=== PATIENT | female | born 1980 | race Caucasian/White ===

== ENCOUNTER 2021-11-20 10:57 | Emergency (ER) | payer BC ==
[2021-11-20] MEDS ORDERED: DECADRON 10MG INJ. IV ONE (11:22)
[2021-11-20] MEDS ORDERED: DECADRON 10MG INJ. ONE (11:37)
[2021-11-20] MEDS ORDERED: HYDROCODONE-ACETAMIN 2.5-108/5 ML SOLUTION ONE (11:37)
[2021-11-20 11:48] LABS: Absolute Neutrophil Ct (ANC) 4.36 x10^3/uL (1.4-6.9); Basophil (Absolute #) 0.03 x10^3/uL (0-0.4); Eosinophil % 0.8 % (0.00-5.0); Eosinophil (Absolute #) 0.05 x10^3/uL (0-0.5); Hemoglobin 13.3 g/dL (12.0-16.0); Lymphocyte (Absolute #) 1.22 x10^3/uL (1.0-4.6); Lymphocytes % 19.6 % (24.0-44.0); Mean Cell Volume 87.4 fL (78-100); Mean Corpuscular Hemoglobin 28.4 pg (26-32); Mean Corpuscular Hgb Concent. 32.4 g/dL (32-36); Monocyte (Absolute #) 0.56 x10^3/uL (0.0-1.3); Neutrophil % 69.8 % (36.0-66.0); Platelet Count 213 x10^3/uL (150-450); Red Blood Count 4.69 x10^6/uL (4.1-5.4); Red Cell Distribution Width 13.1 % (11.5-14.0); White Blood Count 6.2 x10^3/uL (4.0-10.5)
[2021-11-20] MEDS ORDERED: HYDROCODONE-ACETAMIN 2.5-108/5 ML SOLUTION PO STA (11:55)
[2021-11-20 11:59] LABS: ALKALINE PHOSPHATASE 100 U/L (38-126); ANION GAP 12.4 MEQ/L (5-15); BLOOD UREA NITROGEN 10 mg/dL (7-17); CHLORIDE 104 mmol/L (98-107); Calcium 9.2 mg/dL (8.4-10.2); Carbon Dioxide 26 mmol/L (22-30); Creatinine 1 0.58 mg/dL (0.52-1.04); EST GLOMERULAR FILTRATION RATE > 60.0 ML/MIN; Glucose 110 mg/dL (74-106); Potassium 4.4 mmol/L (3.5-5.1); SGOT/AST 22 U/L (14-36); SGPT/ALT 22 U/L (0-35); SODIUM 138 mmol/L (137-145); Total Protein 6.7 g/dL (6.3-8.2)
--- NOTE | 2021-11-20 12:17 | ERPHSYRPT ---
- History of Present Illness Time Seen by Provider: 11/20/21 11:28 Source: patient Exam Limitations: no limitations Patient Subjective Stated Complaint: pt here for cough, congestion, aches, tired, she states she was dx with covid on 11/09/21, and took oral pills, she states she got better and then on states she got a sore throat, cough,congestion and still tested positve for covid Triage Nursing Assessment: pt alert, resp easy, face mask in place, skin w/d/p, has a dry hacky frequent cough, no edema noted Physician History: 40 years old female was recently tested positive for COVID-19 and has taken 5-day course of Paxilovid, was feeling fine until 3 days ago with a negative COVID-19 testing and started to have URI with sinus/nasal congestion with wet to dry cough which is worsening since yesterday. She tested positive again at home. No difficulty breathing or wheezing but worsening of cough. No fever or chills today. Timing/Duration: day(s) (2), constant, gradual onset, worse Cough Quality/Degree: moderate, dry cough Possible Cause: illness exposure Modifying Factors: Worsens With: coughing Associated Symptoms: chest pain/soreness, cough, headache, muscle aches, nasal congestion, nasal drainage, sinus infection, sore throat, No shortness of breath, No wheezing Allergies/Adverse Reactions: No Known Drug Allergies Allergy (Verified 07/27/21 14:49) Hx Tetanus, Diphtheria Vaccination/Date Given: Yes Hx Influenza Vaccination/Date Given: Yes Hx Pneumococcal Vaccination/Date Given: No Immunizations Up to Date: Yes Travel Risk - International Travel Have you traveled outside of the country in past 3 weeks: No - Coronavirus Screening Are you exhibiting any of the following symptoms?: Yes Symptoms: Cough: New Onset, Headaches/Body Aches/Fatigue Close contact with a COVID-19 positive Pt in past 14-21 Days: Yes - Vaccine Status Have you recieved a Covid-19 vaccination: Yes [employer]: Moderna - Vaccination Dates Date of 2cond Vaccination (if applicable): 2020 - Review of Systems Constitutional: Fatigue, Weakness Eyes: No Symptoms Ears, Nose, & Throat: Nose Congestion, Throat Pain Respiratory: Cough Abdominal/Gastrointestinal: No Symptoms Genitourinary Symptoms: No Symptoms Musculoskeletal: Myalgias Skin: No Symptoms Neurological: Headache Endocrine: No Symptoms Hematologic/Lymphatic: No Symptoms Immunological/Allergic: No Symptoms - Past Medical History Pertinent Past Medical History: Yes Neurological History: No Pertinent History ENT History: No Pertinent History Cardiac History: No Pertinent History Respiratory History: No Pertinent History Endocrine Medical History: No Pertinent History Musculoskeletal History: No Pertinent History GI Medical History: No Pertinent History History: No Pertinent History Psycho-Social History: No Pertinent History Female Reproductive Disorders: No Pertinent History Other Medical History: hx of bleeding. - Past Surgical History Past Surgical History: Yes Neuro Surgical History: No Pertinent History Cardiac: No Pertinent History Respiratory: No Pertinent History Gastrointestinal: No Pertinent History Genitourinary: No Pertinent History Musculoskeletal: Orthopedic Surgery Female Surgical History: No Pertinent History Other Surgical History: tonsils. adnoids - Social History Smoking Status: Never smoker Exposure to second hand smoke: No Drug Use: none Patient Lives Alone: No - Female History Hx Last Menstrual Period: 2 weeks ago Hx Now: No - Nursing Vital Signs Nursing Vital Signs: Initial Vital Signs Temperature 98.2 F 11/20/21 11:11 Pulse Rate 110 H 11/20/21 11:11 Respiratory Rate 22 11/20/21 11:11 Blood Pressure 143/93 11/20/21 11:11 O2 Sat by Pulse Oximetry 97 11/20/21 11:11 Pain Scale Pain Intensity 2 - Physical Exam General Appearance: no apparent distress, alert Eye Exam: PERRL/EOMI, eyes nml inspection Ears, Nose, Throat Exam: moist mucous membranes, pharyngeal erythema Neck Exam: normal inspection, supple, full range of motion Respiratory Exam: normal breath sounds, lungs clear Cardiovascular Exam: normal heart sounds, tachycardia Gastrointestinal/Abdomen Exam: soft, normal bowel sounds, No tenderness Back Exam: normal inspection, normal range of motion Extremity Exam: normal inspection, normal range of motion Neurologic Exam: alert, oriented x 3, cooperative, emt driver II-XII nml as tested Skin Exam: normal color SpO2 Interpretation: normal SpO2: 97 O2 Delivery: Room Air Ordered Tests: Active Orders 24 hr Category Date Time Status IV Insertion STAT Care 11/20/21 11:22 Active Pulse Oximetry (ED) STAT Care 11/20/21 11:22 Active CHEST 1 VIEW (PORTABLE) Stat Exams 11/20/21 11:22 Taken BLOOD CULTURE Stat Lab 11/20/21 11:43 Received CBC W DIFF Stat Lab 11/20/21 11:22 Completed CMP Stat Lab 11/20/21 11:43 Completed Medication Summary Discontinued Medications Generic Name Dose Route Start Last Admin Trade Name Suraj PRN Reason Stop Dose Admin Hydrocodone Bitart/Acetaminophen Confirm 11/20/21 11:37 Hydrocodone/Acetaminophen 5 Ml Udcup Administered 11/20/21 11:38 Dose 10 ml .ROUTE .STK-MED ONE Hydrocodone Bitart/Acetaminophen 10 ml 11/20/21 11:55 11/20/21 11:57 Hydrocodone/Acetaminophen 5 Ml Udcup PO 11/20/21 11:56 10 ml STAT STA Administration Dexamethasone Sodium Phosphate 6 mg 11/20/21 11:22 11/20/21 11:38 Dexamethasone Sod Phosphate 10 Mg/Ml IV 11/20/21 11:23 6 mg STAT ONE Administration Dexamethasone Sodium Phosphate Confirm 11/20/21 11:37 Dexamethasone Sod Phosphate 10 Mg/Ml Administered 11/20/21 11:38 Dose 10 mg .ROUTE .STK-MED ONE Lab/Rad Data: Laboratory Result Diagrams 11/20/21 11:22 11/20/21 11:43 Laboratory Results 11/20/21 11/20/21 11/20/21 Range/Units 11:43 11:22 11:20 WBC 6.2 (4.0-10.5) x10^3/uL RBC 4.69 (4.1-5.4) x10^6/uL Hgb 13.3 (12.0-16.0) g/dL Hct 41.0 (35-47) % MCV 87.4 (78-100) fL MCH 28.4 (26-32) pg MCHC 32.4 (32-36) g/dL RDW 13.1 (11.5-14.0) % Plt Count 213 (150-450) x10^3/uL MPV 10.0 (7.5-11.0) fL Gran % 69.8 H (36.0-66.0) % Immature Gran % (Auto) 0.3 (0.00-0.4) % Nucleat RBC Rel Count 0.0 (0.00-0.1) % Eos # (Auto) 0.05 (0-0.5) x10^3/uL Immature Gran # (Auto) 0.02 (0.00-0.03) x10^3u/L Absolute Lymphs (auto) 1.22 (1.0-4.6) x10^3/uL Absolute Monos (auto) 0.56 (0.0-1.3) x10^3/uL Absolute Nucleated RBC 0.00 (0.00-0.01) x10^3u/L Lymphocytes % 19.6 L (24.0-44.0) % Monocytes % 9.0 (0.0-12.0) % Eosinophils % 0.8 (0.00-5.0) % Basophils % 0.5 (0.0-0.4) % Absolute Granulocytes 4.36 (1.4-6.9) x10^3/uL Basophils # 0.03 (0-0.4) x10^3/uL Sodium 138 (137-145) mmol/L Potassium 4.4 (3.5-5.1) mmol/L Chloride 104 (98-107) mmol/L Carbon Dioxide 26 (22-30) mmol/L Anion Gap 12.4 (5-15) MEQ/L BUN 10 (7-17) mg/dL Creatinine 0.58 (0.52-1.04) mg/dL Estimated GFR > 60.0 ML/MIN Glucose 110 H (74-106) mg/dL Calcium 9.2 (8.4-10.2) mg/dL Total Bilirubin 0.30 (0.2-1.3) mg/dL AST 22 (14-36) U/L ALT 22 (0-35) U/L Alkaline Phosphatase 100 (38-126) U/L Serum Total Protein 6.7 (6.3-8.2) g/dL Albumin 4.0 (3.5-5.0) g/dL Influenza Type A Ag NEGATIVE (NEGATIVE) Influenza Type B Ag NEGATIVE (NEGATIVE) RSV (PCR) NEGATIVE (Negative) SARS-CoV-2 (PCR) POSITIVE A (NEGATIVE) - Progress Progress: improved, re-examined Air Movement: good Progress Note: 11/20/21 12:29 40-year-old is evaluated for worsening cough and URI symptoms. She is given liquid hydrocodone and on reevaluation feeling much better. No wheezing or obvious difficulty breathing. Chest x-ray showed questionable infiltrative process in right lower lung reviewed by me, official report is pending. I would start her on Z-Daniele and a short course of steroid and will give symptomatic treatment for cough. Discussed signs symptoms of worsening needing return to ER which she seems understanding. Stable for discharge. Blood Culture(s) Obtained: Yes Antibiotics given: Yes Counseled pt/family regarding: lab results, diagnosis, need for follow-up, rad results - Departure Departure Disposition: Home Clinical Impression: Pneumonia, COVID-19 Condition: Stable Critical Care Time: No Referrals: RADHA MIX NP [Primary Care Provider] - Follow up/PCP as directed (2 days for re evaluation ) Instructions: Pneumonia, Adult (DC), Cough, Adult (DC) Prescriptions: Hydrocodone/Acetaminophen [Hydrocodone-Acetamin 2.5-108/5 ml Solution] 10 ml PO Q6HPRN PRN 3 Days #118 ml MDD 40ml PRN Reason: Cough Dexamethasone [Decadron] 6 mg PO DAILY #5 tablet Azithromycin 250 mg [Zithromax 250 MG TABLET] 250 mg PO ZPACK #6 tablet
[2021-11-20 12:40] LABS: INFLUENZA A NEGATIVE (NEGATIVE); INFLUENZA B NEGATIVE (NEGATIVE); RESPIRATORY SYNCTIAL VIRUS NEGATIVE (Negative)
[2021-11-20 12:58] LABS: SARS-CoV-2 Xpert Express POSITIVE (NEGATIVE)
[2021-11-20 13:16] VITALS: BP 108/56; PULSE 99; O2SAT 96
--- NOTE | 2021-11-20 19:27 | XRAY ---
Indication: Cough and short of breath. Positive Covid 19. Comparison: None Portable chest demonstrates subtle right base infiltrate versus atelectasis. Remaining heart, lungs, and bony thorax unremarkable.
== END 2021-11-20 13:20 | disposition home or self-care (01) ==
LOC: ED 10:57
DX: U07.1 COVID-19 (principal); J12.82 Pneumonia due to coronavirus disease 2019; R09.81 Nasal congestion; R05.1 Acute cough; Z79.891 Long term (current) use of opiate analgesic; Z79.52 Long term (current) use of systemic steroids
CPT/HCPCS: 0241U; 36000; 36415; 71045; 80053; 85025; 87040; 94760; 96374; 99284; J1100; A9270-GY